=== PATIENT | male | born 1970 | race Caucasian/White ===

== ENCOUNTER 2017-11-21 13:09 | Emergency (ER) | payer MEDICARE, MEDICAID ==
[~2017-11-21] VITALS: Ht 182.9 cm; Wt 99.0 kg
[~2017-11-21 13:09] MED LIST: ATI1T PO; BUSP5TAB26 PO; DIPH-423 PO; DIVA500T2 PO; GUAI120015 PO; LORA10TA65 PO; NAPR-1144 PO; NEOM14.216 TP; NICO-687 TD; TRAZ150T78 PO; VENL-190 PO
[2017-11-21 13:13] VITALS: BP 121/78
[2017-11-21] MEDS ORDERED: CEPH500C5 PO (13:25)
[2017-11-21] MEDS ORDERED: IBUP-1984 PO (13:34)
== END 2017-11-21 13:38 | disposition home or self-care (01) ==
LOC: ER 13:11
DX: L72.3 Sebaceous cyst (principal); G43.909 Migraine, unspecified, not intractable, without status migrainosus; E78.00 Pure hypercholesterolemia, unspecified; G89.29 Other chronic pain; I10 Essential (primary) hypertension; K21.9 Gastro-esophageal reflux disease without esophagitis; E11.9 Type 2 diabetes mellitus without complications; F12.10 Cannabis abuse, uncomplicated; Z79.899 Other long term (current) drug therapy
CPT/HCPCS: 99283

== ENCOUNTER 2019-06-13 17:05 | Emergency (ER) | payer MEDICAID, MEDICARE ==
[~2019-06-13] VITALS: Ht 182.9 cm; Wt 72.7 kg
[2019-06-13] MEDS ORDERED: metoclopramide 5 mg/ml inj IV ONE (18:20)
[2019-06-13] MEDS ORDERED: normal saline 1000ML IV soln IVB ONE (18:20)
[2019-06-13] MEDS ORDERED: ketorolac trometh. 30mg/ml inj. IV ONE (18:20)
[2019-06-13] MEDS ORDERED: ondansetron/PF 4mg/2ml inj IV ONE (18:20)
[2019-06-13 18:50] LABS: BASOPHILS % (AUTO) 0.3 % (0-1); EOSINOPHILS # (AUTO) 0.2 X10'3 (0-0.9); EOSINOPHILS % (AUTO) 1.4 % (0-6); HEMATOCRIT 37.2 % (42.0-52.0); LYMPHOCYTES # (AUTO) 1.3 X10'3 (1.1-4.8); LYMPHOCYTES % (AUTO) 9.4 % (21-51); MEAN CORPUSCULAR HEMOGLOBIN 32.1 PG (27.0-31.0); MEAN CORPUSCULAR HGB CONC 34.9 g/dL (33.0-36.5); MEAN PLATELET VOLUME 6.2 FL (7.4-10.4); MONOCYTES # (AUTO) 0.7 X10'3 (0-0.9); MONOCYTES % (AUTO) 5.5 % (2-12); NEUTROPHILS # (AUTO) 11.5 X10'3 (1.8-7.7); NEUTROPHILS % (AUTO) 83.4 % (42-75); PLATELET COUNT 265 X10'3 (140-440); RED BLOOD COUNT 4.04 X10'6 (4.70-6.10); WHITE BLOOD COUNT 13.7 X10'3 (4.5-11.0)
[2019-06-13 19:01] LABS: ALANINE AMINOTRANSFERASE 27 U/L (12-78); ALBUMIN 3.2 G/DL (3.4-5.0); ALBUMIN/GLOBULIN RATIO 1.1 (1.1-1.5); ALKALINE PHOSPHATASE 69 IU/L (46-116); ANION GAP 6 (8-16); ASPARTATE AMINO TRANSFERASE 23 U/L (10-37); BILIRUBIN,TOTAL 0.2 MG/DL (0.1-1.0); BLOOD UREA NITROGEN 17 MG/DL (7-18); CALCIUM 8.4 MG/DL (8.5-10.1); CHLORIDE 106 MMOL/L (99-107); CREATININE 0.63 MG/DL (0.60-1.10); GLUCOSE 104 MG/DL (70-104); POTASSIUM 3.8 MMOL/L (3.5-5.1); SODIUM 140 MMOL/L (135-145); TOTAL CARBON DIOXIDE 27.8 MMOL/L (24-32); eGFR > 90 ML/MIN
[2019-06-13 19:08] LABS: ETHANOL < 0.010 GM/DL (0.0-0.010)
[2019-06-13 19:48] VITALS: BP 141/87
== END 2019-06-13 19:51 | disposition home or self-care (01) ==
LOC: ER 17:05
DX: G43.909 Migraine, unspecified, not intractable, without status migrainosus (principal); M79.671 Pain in right foot; M79.661 Pain in right lower leg; E78.00 Pure hypercholesterolemia, unspecified; I10 Essential (primary) hypertension; K21.9 Gastro-esophageal reflux disease without esophagitis; E11.9 Type 2 diabetes mellitus without complications; G89.29 Other chronic pain; F31.9 Bipolar disorder, unspecified; F41.0 Panic disorder [episodic paroxysmal anxiety]; F20.9 Schizophrenia, unspecified; Z86.69 Personal history of other diseases of the nervous system and sense organs; F12.90 Cannabis use, unspecified, uncomplicated; Z98.890 Other specified postprocedural states; Z88.8 Allergy status to other drugs, medicaments and biological substances; Z79.899 Other long term (current) drug therapy
CPT/HCPCS: 36415; 73552; 73630; 80053; 80320; 85025; 96374; 96375; 99284; J1885; J2405; J2765; J7030

== ENCOUNTER 2019-06-17 21:15 | Emergency (ER) | payer MEDICARE, MEDICAID ==
[~2019-06-17] VITALS: Ht 180.3 cm; Wt 75.0 kg
[2019-06-17] MEDS ORDERED: diphenhydrAMINE 25mg capsule PO ONE (22:35)
[2019-06-17] MEDS ORDERED: proCHLORperazine 10 MG/2 ml inj IM ONE (22:35)
[2019-06-17 23:36] VITALS: BP 106/75
== END 2019-06-17 23:30 | disposition home or self-care (01) ==
LOC: ER 21:15
DX: G43.909 Migraine, unspecified, not intractable, without status migrainosus (principal); R50.9 Fever, unspecified; E78.00 Pure hypercholesterolemia, unspecified; I10 Essential (primary) hypertension; K21.9 Gastro-esophageal reflux disease without esophagitis; E11.9 Type 2 diabetes mellitus without complications; G89.29 Other chronic pain; F31.9 Bipolar disorder, unspecified; F41.0 Panic disorder [episodic paroxysmal anxiety]; F20.9 Schizophrenia, unspecified; F12.90 Cannabis use, unspecified, uncomplicated; Z98.890 Other specified postprocedural states; Z88.6 Allergy status to analgesic agent; Z79.899 Other long term (current) drug therapy; Z87.19 Personal history of other diseases of the digestive system
CPT/HCPCS: 96372; 96374; 99284

== ENCOUNTER 2019-06-23 19:13 | Emergency (ER) | payer MEDICARE, MEDICAID ==
[~2019-06-23] VITALS: Ht 182.9 cm; Wt 59.7 kg
[2019-06-23 20:09] LABS: CLARITY,URINE CLEAR (Clear); COLOR,URINE YELLOW (Yellow); GLUCOSE, URINE NEGATIVE (Neg); KETONES,URINE NEGATIVE (Neg); LEUKOCYTE ESTERASE ,URINE NEGATIVE (Neg); NITRITES, URINE NEGATIVE (Neg); OCCULT BLOOD,URINE NEGATIVE (Neg); PH,URINE 5.5 (4.8-8.0); PROTEIN,URINE NEGATIVE (Neg); UROBILINOGEN,URINE 0.2 E.U/dL (0.2-1.0)
[2019-06-23 20:16] LABS: UA COLLECTION TYPE CLN CATCH MIDSTREAM
[2019-06-23 20:18] LABS: URINE AMPHETAMINE SCREEN NEGATIVE (Neg); URINE BARBITUATE SCREEN NEGATIVE (Neg); URINE BENZODIAZEPINES SCREEN NEGATIVE (Neg); URINE CANNABINOID SCREEN POSITIVE (Neg); URINE COCAINE SCREEN NEGATIVE (Neg); URINE METHADONE SCREEN NEGATIVE (Neg); URINE OPIATE SCREEN NEGATIVE (Neg); URINE PHENCYCLIDINE SCREEN NEGATIVE (Neg)
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
[2019-06-23 20:50] LABS: BASOPHILS % (AUTO) 0.3 % (0-1); EOSINOPHILS # (AUTO) 0.2 X10'3 (0-0.9); EOSINOPHILS % (AUTO) 2.8 % (0-6); HEMATOCRIT 37.4 % (42.0-52.0); LYMPHOCYTES # (AUTO) 1.2 X10'3 (1.1-4.8); MEAN CORPUSCULAR HEMOGLOBIN 32.1 PG (27.0-31.0); MEAN CORPUSCULAR HGB CONC 34.6 g/dL (33.0-36.5); MEAN CORPUSCULAR VOLUME 92.7 FL (78-98); MONOCYTES # (AUTO) 0.7 X10'3 (0-0.9); MONOCYTES % (AUTO) 8.3 % (2-12); NEUTROPHILS # (AUTO) 6.6 X10'3 (1.8-7.7); NEUTROPHILS % (AUTO) 74.6 % (42-75); PLATELET COUNT 314 X10'3 (140-440); RED BLOOD COUNT 4.04 X10'6 (4.70-6.10); RED CELL DISTRIBUTION WIDTH 13.5 % (11.5-14.5); WHITE BLOOD COUNT 8.8 X10'3 (4.5-11.0)
[2019-06-23 21:02] LABS: ALANINE AMINOTRANSFERASE 22 U/L (12-78); ALBUMIN 2.9 G/DL (3.4-5.0); ALBUMIN/GLOBULIN RATIO 0.9 (1.1-1.5); ALKALINE PHOSPHATASE 67 IU/L (46-116); ANION GAP 6 (8-16); ASPARTATE AMINO TRANSFERASE 19 U/L (10-37); BILIRUBIN,TOTAL 0.1 MG/DL (0.1-1.0); BLOOD UREA NITROGEN 27 MG/DL (7-18); BUN/CREATININE RATIO 44.3 (5.4-32.0); CALCIUM 8.5 MG/DL (8.5-10.1); CHLORIDE 105 MMOL/L (99-107); CREATININE 0.61 MG/DL (0.60-1.10); GLUCOSE 149 MG/DL (70-104); POTASSIUM 3.5 MMOL/L (3.5-5.1); SODIUM 139 MMOL/L (135-145); TOTAL CARBON DIOXIDE 27.8 MMOL/L (24-32); eGFR > 90 ML/MIN
[2019-06-23 21:11] LABS: ETHANOL < 0.010 GM/DL (0.0-0.010)
--- NOTE | 2019-06-23 21:30 | NUR ---
Patient is sleeping on his left side in bed, in view from the nursing station.
--- NOTE | 2019-06-23 22:39 | NUR ---
Patient is awake and ambulating to the bathroom and back.
--- NOTE | 2019-06-23 23:21 | NUR ---
Packet sent to [facility]. Confirmed receipt of packet with Anitha VILLA office.
--- NOTE | 2019-06-23 23:57 | NUR ---
Patient now sleeping in bed on his left side.
--- NOTE | 2019-06-24 01:35 | NUR ---
Pt sleeping, lying on his left side with blankets covering to his shoulders. RR 14 and unlabored. Staff within view of Pt AAT.
[2019-06-24 05:30] VITALS: BP 115/65
[2019-06-24] MEDS ORDERED: acetaminophen 325mg tablet PO PRN (06:15)
[2019-06-24] MEDS ORDERED: ibuprofen tablet 400 MG TABLET PO PRN (06:15)
--- NOTE | 2019-06-24 07:02 | NUR ---
PT CURRENTLY LAYING IN BED FIDGETING FEET, TALKING TO HIMSELF. AT TIMES, HIS TONE BECOMES ANGRY AND HE CURSES. PT IN DIRECT LINE OF SIGHT.
[2019-06-24] MEDS ORDERED: LORazepam 1 MG tablet PO ONE ×2 (07:10→15:25)
--- NOTE | 2019-06-24 07:20 | NUR ---
Pt becoming increasingly agitated as noted by tech. Change in tone of voice while talking to himself, appears irritated and slightly angry, becoming more restless and getting in and out of bed. MD notified. One time dose of ativan 2mg PO ordered and administered.
--- NOTE | 2019-06-24 13:39 | NUR ---
Call from [place] office, patient accepted to [facility] today
[2019-06-24] MEDS ORDERED: nicotine 21mg patch - 24 hr TD ONE (15:25)
[2019-06-24] MEDS ORDERED: LORazepam 2 mg/ml vial IM ONE (15:35)
--- NOTE | 2019-06-24 15:47 | NUR ---
Pt informed that he has been accepted to [facility] and asked to get his belongings including his hot wort settler and cigars. Pt wanted to go outside and smoke - informed pt as to why this is not allowed. Pt became angry and threatened to leave. Explained to pt the protocol as to why he cannot leave for his safety. Security called to bedside. notified. Nicotine patch and PO ativan ordered - pt began to yell, get out of bed, become increasingly agitated and repeatedly yelled "I want to be " and "I want to be buried undergroud." Told pt he can take the PO ativan or it has to be delivered via IM, pt stated he would rather have the shot. Security held down pt as RN administered IM ativan.
[2019-06-25] MEDS ORDERED: NO HOME MEDS (13:08)
== END 2019-06-24 16:38 | disposition home or self-care (01) ==
LOC: ER 19:14
DX: R45.851 Suicidal ideations (principal); G43.909 Migraine, unspecified, not intractable, without status migrainosus; E78.00 Pure hypercholesterolemia, unspecified; I10 Essential (primary) hypertension; K21.9 Gastro-esophageal reflux disease without esophagitis; E11.9 Type 2 diabetes mellitus without complications; G89.29 Other chronic pain; F31.9 Bipolar disorder, unspecified; F20.9 Schizophrenia, unspecified; F12.90 Cannabis use, unspecified, uncomplicated; F10.99 Alcohol use, unspecified with unspecified alcohol-induced disorder; Z86.69 Personal history of other diseases of the nervous system and sense organs; Z98.890 Other specified postprocedural states; Z88.8 Allergy status to other drugs, medicaments and biological substances; Z79.899 Other long term (current) drug therapy; Y90.9 Presence of alcohol in blood, level not specified
CPT/HCPCS: 36415; 80053; 80305; 80320; 81003; 84443; 85025; 96372; 99285; J2060

== ENCOUNTER 2019-06-24 14:12 | Inpatient (IN) | payer MEDICARE, MEDICAID ==
[~2019-06-24] VITALS: Ht 182.9 cm; Wt 78.1 kg
--- NOTE | 2019-06-24 17:00 | NUR ---
ADMISSION NOTE: Pt admitted on a 5150 from ER-overflow at 1642. Pt escorted with security and two RN skin check completed by Yovany Love and Alexandra Hall. Pt cursing and negative r/t admission and not being able to smoke a cigar. 5150 states pt was depressed and hopeless with a plan to jump off a bridge. Pt was a walk-in to the ER by himself. Pt states he has had s.i. x 3 days and has not taken medication x 2 years. Pt was negative for all drugs of abuse except cannabinoids. Alcohol was negative.
[2019-06-24] MEDS ORDERED: loperamide 2mg capsule PO PRN (17:05)
[2019-06-24] MEDS ORDERED: magnesium hydroxide 30ml (MOM) UD suspension PO PRN (17:05)
[2019-06-24] MEDS ORDERED: mag hydrox/Alum hydrox/simeth 30ml oral suspension PO PRN (17:05)
[2019-06-24] MEDS ORDERED: acetaminophen 325mg tablet PO PRN (17:05)
[2019-06-24 20:03] VITALS: BP 98/57
--- NOTE | 2019-06-25 01:04 | NUR ---
Nursing Progress Note: Legal hold: 5150 Client on voluntary/involuntary status for GD/DTS. Report received from nurse with use of SBAR. Why are they here: 49-year-old male with a history of depression since with suicidal ideation 3 days. Patient states he does not take any medicines for depression for the last 2 years. He states he was going to overdose or jump in front of car in order to end his life. Last used meth one week ago. Also occasionally uses marijuana. Denies any alcohol use. He does smoke cigarettes as well. Assessment What has happened this shift: The patient was found in his bed at shift change. Upon entering his room his eyes opened. He was told that I was there to do assessment. The patient refused saying he's too tired and needs to sleep. The patient remains asleep at this time. S/I, H/I: unknown A/VH: unknown Sleep: See sleep hours ADL's: Independent Group attendance: No groups at night Were meds taken: Yes Any med S/E: None reported or observed Mental Status Exam Appearance: Disheveled man laying in bed. Eye contact: Avoided Behavior: Sleeping Speech: Normal Mood: unknown Affect:unknown Thought process: unknown Thought Content:unknown Cognition: Alert Insight: Poor Judgment: Poor Interventions PRN's used: Therapeutic interventions: Provided therapeutic communication with active listening, maintained safe therapeutic milieu, provided medication administration/education/monitoring as needed; Q15 safety checks. Restraints/seclusion/emergency medication: N/A Justification of Continued Inpatient Treatment: Continued therapeutic support and medication management needed to provide stabilization, prevent decompensation, and improve coping mechanisms decreasing risk to patient and re-admittance.
[2019-06-25] MEDS: nicotine 21mg patch - 24 hr TD SCH (07:23)
[2019-06-25] MEDS: hydrOXYzine 25 MG tablet PO PRN (07:49)
[2019-06-25] MEDS ORDERED: diphenhydrAMINE 50 mg/ml inj ONE (09:42)
[2019-06-25] MEDS ORDERED: haloperidol lactate 5mg/ml inj ONE (09:42)
[2019-06-25] MEDS ORDERED: LORazepam 2 mg/ml vial ONE (09:43)
[2019-06-25] MEDS ORDERED: NO HOME MEDS (13:08)
--- NOTE | 2019-06-25 13:47 | NUR ---
Malnutrition consult. Patient reports on malnutrition risk screening a 34 or more lb weight loss and eating poorly d/t decreased appetite. Current weight 74.2 kg on bedscale, in May patient weighed 72.73 kg on chair scale. No other recent weights available. No edema present. Normal muscle strength. Current PO intake 100% of regular diet. No malnutrition at this time. Will continue to follow. Addendum: 06/25/19 at [address] Amended: Links added.
--- NOTE | 2019-06-25 14:50 | NUR ---
Nursing Progress Note: Legal hold: 5150 Client on involuntary status for GD/DTS. Report received from nurse Florian with use of SBAR. Why are they here: 49-year-old male with a history of depression since with suicidal ideation 3 days. Patient states he does not take any medicines for depression for the last 2 years. He states he was going to overdose or jump in front of car in order to end his life. Last used meth one week ago. Also occasionally uses marijuana. Denies any alcohol use. He does smoke cigarettes as well. Assessment What has happened this shift: Pt presented as restless and agitated early this morning before breakfast. He was demanding his cigars, demanding that the charge nurse show him his cigars to prove they were still in his belongings. Order obtained for Nicotine patch which pt adamantly refused, also refused lozenges. Pt paranoid, he accused staff of stealing his belongings, stated we had no right to keep him here. Mental health hold education provided with little comprehension by pt. Pt was in possession of a jacket with pull strings in moreno and at waist as well as drawstring shorts. Explained to pt that they were not allowed on the unit for safety and that we would take them and place them in his locker until he was discharged. Pt angry, unwilling to allow staff to take the jacket and the shorts. Security was called for back up and pt reluctantly allowed staff to take the jacket. He would not give up the shorts and agreed to allow the drawstrings to be cut off of them. Pt declined any prn medications stating that he would just lie there in the bed for 3 days. Shortly thereafter, pt began quickly pacing around the unit mumbling profanities about staff, "I hate that fucking bitch." Pt delusional, he stated, "I hate the people here, I hate his daughter Carolina Purvis." Attempted reality orientation that there was no one here by that name. Pt pointed his finger at the biometrics technician and indicated that she was Carolina. Pt repeatedly stated over and over again, "I don't trust you people." Pt was resistant to taking prn medications,offered prn Atarax several times, pt finally agreed to take it at 0749 after seeing a male nurse in the lam, stated, "I trust you." Pt calmed some after breakfast and allowed physical and mental health assessments. Pt denied all symptoms. Reminded pt that he was here because he had been making suicidal statements. Pt stated that he no longer felt that way, "I'm over that, can I leave please?" After breakfast pt again began demanding his cigars and demanding to leave, pt rapidly pacing again using profanities, making statements like, " I hate people here, especially that fat, fucking whore at the window....nigger Mormons, nigger Mormons, nigger Mormons, I hate Mormons!" Pt offered prn Ativan, he adamantly refused stating he wasn't going to take our medicine, that he was going to leave, he would just smash the window to get out of here. Limit setting, redirection, and verbal de-escalation ineffective. Security was called as a show of support. Pt again refused prn meds despite encouragement. Limit setting utilized that profane language directed towards staff members and threats to smash the windows out would not be tolerated, explained possible consequences of continued unsafe behaviors. Pt stated, just give me a shot. Encouraged pt to reconsider PO mediation. Pt declined and continued with agitation, profanities, threats, and unwillingness to follow direction. Psychiatrist Dr Yepez notified and one time dose of IM Haldol 5 mg, Ativan 2 mg, and Benadryl 50 mg given at 0950. Pt cooperative with administration of IM meds. Pt was calm, pleasant, and cooperative after administration of IM meds, marked reduction in anxiety and agitation as well as presentation of psychotic symptoms. Pt ate some snacks and took a very short nap then was up calmly walking around the unit. Pt stated that he has been off of his meds for 2 years. S/I, H/I: Pt denies A/VH: Pt denies Sleep: Pt slept 5.75 hours per noc shift report, napped for less than 30 minutes on day shift today. ADL's: Independent Group attendance: No Were meds taken: No routine meds ordered as of yet, given a one time dose of IM medication. Any med S/E: None noted or reported Mental Status Exam Appearance: Disheveled man in scrub pant with orange shorts over them and olive green sweatshirt. Eye contact: Fair Behavior: Agitated, demanding, loud verbal outbursts and profanity, resistant to care and medications Speech: Pressured, many profanities Mood: Angry Affect: Agitated Thought process: Paranoid, delusional Thought Content: Wants his cigars, wants to leave, believes staff members are other people he knows, dislikes, and mistrusts. Cognition: A/O X 2 Insight: Poor Judgment: Poor Interventions PRN's used: Atarax 50 mg Therapeutic interventions: 1:1 assessment, active listening, reality orientation, limit setting, redirection, distraction, verbal de-escalation, show of support,monitoring and intervention of unsafe behaviors, encouragement to take medications, positive reinforcement, mental health hold education, Q15 safety checks. Restraints/seclusion/emergency medication: IM Haldol 5 mg, Ativan 2 mg, Benadryl 50 mg @ 0749. Justification of Continued Inpatient Treatment: Pt is psychotic, paranoid, and delusional, he is homeless with a history of substance abuse, he states he has been off his meds for 2 years. He needs crisis interruption, therapeutic support and medication management adjustment and monitoring in a safe and therapeutic environment to provide stabilization, prevent decompensation, and improve coping mechanisms decreasing risk to patient and re-admittance.
[2019-06-25] MEDS ORDERED: haloperidol 5mg tablet PO ONE (19:20)
[2019-06-25] MEDS ORDERED: diphenhydrAMINE 25mg capsule PO ONE (19:20)
[2019-06-25] MEDS ORDERED: LORazepam 1 MG tablet PO ONE (19:20)
[2019-06-25 20:06] VITALS: BP 90/50
--- NOTE | 2019-06-26 02:21 | NUR ---
Nursing Progress Note: Legal hold: 5150 Client on involuntary status for GD/DTS. Report received from nurse Ruano with use of SBAR. Why are they here: 49-year-old male with a history of depression since with suicidal ideation 3 days. Patient states he does not take any medicines for depression for the last 2 years. He states he was going to overdose or jump in front of car in order to end his life. Last used meth one week ago. Also occasionally uses marijuana. Denies any alcohol use. He does smoke cigarettes as well. Assessment What has happened this shift: Pt was sleeping in his bed at change of shift and remained in bed for duration of the shift, except to get out of bed to request snacks. Pt was somewhat agitated during assessment and states "I dont want to talk about it." in regards to why he is here. Pt denies s/i, denies a/vh, denies h/i. Pt is polite when asking for snacks but once recieving them tells ppl to get out of his room. Pt smeared chocolate milk powder over his night stand and spilled it all over the floor. Attempted to clean up spill and pt yelled "dammit I'm trying to get some sleep can you get the hell out of here? and shut off the light?" Pt was sitting on the side of his bed eating when he requested to have the light shut off. Pt was later laying in bed rambling and cussing talking to himself. Asked pt if he would like anything to help sleep and he states "I want to know when I can get the hell out of here, can you get me a cigar and some matches?" Offered nicotine patch or lozenge and pt states "If you dont get me a cigar I'm going to break this window out if I have to get out of here." Pt remained in bed mumbling and talking to himself quietly. S/I, H/I: Pt denies A/VH: Pt denies Sleep: Pt laying in bed quietly mumbling and cursing to himself. Prn offered and pt declined. ADL's: Independent Group attendance: No Were meds taken: No routine meds ordered. Any med S/E: None noted or reported Mental Status Exam Appearance: Disheveled man in scrub pant with orange shorts over them and olive green sweatshirt. Eye contact: Fair Behavior: Agitated, demanding, loud verbal outbursts and profanity, resistant to care and medications Speech: Pressured, many profanities Mood: Angry Affect: Agitated Thought process: Paranoid, delusional Thought Content: Wants his cigars, wants to leave, believes staff members are other people he knows, dislikes, and mistrusts. Cognition: A/O X 2 Insight: Poor Judgment: Poor Interventions PRN's used: Therapeutic interventions: 1:1 assessment, active listening, reality orientation, limit setting, redirection, distraction, verbal de-escalation, show of support,monitoring and intervention of unsafe behaviors, encouragement to take medications, positive reinforcement, mental health hold education, Q15 safety checks. Restraints/seclusion/emergency medication: IM Haldol 5 mg, Ativan 2 mg, Benadryl 50 mg @ 0749. Justification of Continued Inpatient Treatment: Pt is psychotic, paranoid, and delusional, he is homeless with a history of substance abuse, he states he has been off his meds for 2 years. He needs crisis interruption, therapeutic support and medication management adjustment and monitoring in a safe and therapeutic environment to provide stabilization, prevent decompensation, and improve coping mechanisms decreasing risk to patient and re-admittance. Addendum: 06/26/19 at 0324 by Cathleen Lama RN No restrains this shift
[2019-06-26 07:14] LABS: HEMOGLOBIN A1C 5.4 % (4.5-6.2)
[2019-06-26 07:29] LABS: CHOL/HDL RATIO 3.6 (0.00-4.99); CHOLESTEROL 147 MG/DL (0-200); HDL CHOLESTEROL 41 MG/DL (35-60); LDL CHOLESTEROL 97 MG/DL (50-100); TRIGLYCERIDES 68 MG/DL (20-135)
[2019-06-26] MEDS: nicotine 21mg patch - 24 hr TD SCH (07:47)
[2019-06-26 08:00] VITALS: BP 107/74
--- NOTE | 2019-06-26 12:55 | NUR ---
Attempted to meet with Ct to complete psychosocial assessment. He was paranoid and did not want to answer many questions. Rehabilitation Therapist is familiar with Ct and was able to complete assessment based on history. Ct reported he plans on going to the [place]. He reported he has a payee and can stay at a hotel if he wishes. Spoke to [facility] office and was informed that Ct was closed to services at [facility] 11/2018 when Ct moved to [place] and he declined to start services in [facility]. DEEP Bowie Addendum: 06/26/19 at 1300 by Pia CARL Amended: Links added.
[2019-06-26] MEDS ORDERED: ARIPIPRAZOLE 400 MG IM ONE (13:05)
[2019-06-26] MEDS ORDERED: aripiprazole 400mg suspension ER syringe IM ONE (13:05)
--- NOTE | 2019-06-26 13:39 | NUR ---
Nursing Progress Note: Legal hold: 5150 Client on involuntary status for GD/DTS. Report received from nurse Jerry with use of SBAR. Why are they here: 49-year-old male with a history of depression since with suicidal ideation 3 days. Patient states he does not take any medicines for depression for the last 2 years. He states he was going to overdose or jump in front of car in order to end his life. Last used meth one week ago. Also occasionally uses marijuana. Denies any alcohol use. He does smoke cigarettes as well. Assessment What has happened this shift: Client was awake and agitated to begin the shift. Client was oppositional this am and has issued several verbal threats towards this senior mortgage underwriter. Client wants to leave and, "go smoke my cigars". Client refuses PRN medication interventions and loudly dimisses attempts to assist him to cope with the agaitation. DIANNA Solomon is aware and emergency medications have been identified if the need arises. Client stated, " I don't care about you fucking people and I will start to hurt all of you. "Let me the fuck out of here now". Client is currently in his room talking loudly to himself. (1348 hours). S/I, H/I: Pt denies A/VH: Pt denies Sleep: Pt laying in bed quietly mumbling and cursing to himself. Prn offered and pt declined. ADL's: Independent Group attendance: No Were meds taken: refused Nicotine replacement. Any med S/E: None noted or reported Mental Status Exam Appearance: Disheveled man in scrub pant with orange shorts over them and olive green sweatshirt. Eye contact: Fair Behavior: Agitated, demanding, loud verbal outbursts and profanity, resistant to care and medications Speech: Pressured, many profanities Mood: Angry Affect: Agitated Thought process: Paranoid, delusional Thought Content: Wants his cigars, wants to leave, believes staff members are other people he knows, dislikes, and mistrusts. Cognition: A/O X 2 Insight: Poor Judgment: Poor Interventions PRN's used: Therapeutic interventions: 1:1 assessment, active listening, reality orientation, limit setting, redirection, distraction, verbal de-escalation, show of support,monitoring and intervention of unsafe behaviors, encouragement to take medications, positive reinforcement, mental health hold education, Q15 safety checks. Justification of Continued Inpatient Treatment: Pt is psychotic, paranoid, and delusional, he is homeless with a history of substance abuse, he states he has been off his med for a while now. Addendum: 06/26/19 at 1457 by Hank Means RN Client showered this afternoon and his behaviors have been much more appropriate this afternoon. Client is not issuing threats and is communicating his needs to treatment Staff.
[2019-06-26] MEDS: divalproex sod 250mg ER (24-hour) tablet PO SCH (20:17)
[2019-06-26 20:31] VITALS: BP 116/74
--- NOTE | 2019-06-26 21:35 | NUR ---
Nursing Progress Note: Legal hold: 5150 Client on involuntary status for GD/DTS. Report received from nurse Ruano with use of SBAR. Why are they here: 49-year-old male with a history of depression since with suicidal ideation 3 days. Patient states he does not take any medicines for depression for the last 2 years. He states he was going to overdose or jump in front of car in order to end his life. Last used meth one week ago. Also occasionally uses marijuana. Denies any alcohol use. He does smoke cigarettes as well. Assessment What has happened this shift: Client was in his room at change of shift. Pt refused assessment saying "get the hell out of here, unless you're gonna get me a cigar, I dont want anything from you!...Are you gonna let me go?? Pt was agitated then a couple hours later he came to nurses station and smiling, he politely asked for his evening meds and saltine crackers. Pt took evening meds and returned to bed. S/I, H/I: Pt denies A/VH: Pt denies Sleep: Pt appears to be resting comfortably ADL's: Independent Group attendance: No Were meds taken: yes Any med S/E: None noted or reported Mental Status Exam Appearance: wearing white t shirt and scrubs Eye contact: Fair Behavior: Agitated, demanding, loud verbal outbursts and profanity, resistant to care, labile Speech: Pressured, many profanities Mood: Angry, Affect: Agitated, labile Thought process: Paranoid, delusional Thought Content: Wants his cigars, wants to leave, believes staff members are other people he knows, dislikes, and mistrusts. Cognition: A/O X 2 Insight: Poor Judgment: Poor Interventions PRN's used: Therapeutic interventions: 1:1 assessment, active listening, reality orientation, limit setting, redirection, distraction, verbal de-escalation, show of support,monitoring and intervention of unsafe behaviors, encouragement to take medications, positive reinforcement, mental health hold education, Q15 safety checks. Justification of Continued Inpatient Treatment: Pt is psychotic, paranoid, and delusional, he is homeless with a history of substance abuse, he states he has been off his med for a while now.
[2019-06-27 08:00] VITALS: BP 103/68
[2019-06-27] MEDS: nicotine 21mg patch - 24 hr TD SCH (08:00)
[2019-06-27] MEDS ORDERED: ARIPIPRAZOLE 10 MG TABLET PO SCH (08:00)
[2019-06-27] MEDS: divalproex sod 250mg ER (24-hour) tablet PO SCH ×2 (08:03→20:02)
[2019-06-27] MEDS: acetaminophen 325mg tablet PO PRN ×2 (11:31→12:42)
--- NOTE | 2019-06-27 14:43 | NUR ---
[facility] Ct currently has [facility]-alison. Assisted him with calling [facility] to switch Medi-alison to [facility] as he plans on staying in [place] and would like to follow up with [facility]. They did not have record of his Medi-alison. Attempted to assist him with calling [facility] to switch it and Ct hung up and said he would rather just walk in to switch it. Ct appeared to be frustrated and stated he wants to leave and would like to see his doctor to discuss discharge. DEEP Bowie
[2019-06-27] MEDS: ARIPIPRAZOLE 10 MG TABLET PO SCH ×2 (16:40→20:02)
[2019-06-27] MEDS: LORazepam 1 MG tablet PO PRN (17:21)
--- NOTE | 2019-06-27 18:30 | NUR ---
Nursing Progress Note: Legal hold: 5150 Client on involuntary status for GD/DTS. Report received from nurse Jerry with use of SBAR. Why are they here: 49-year-old male with a history of depression since with suicidal ideation 3 days. Patient states he does not take any medicines for depression for the last 2 years. He states he was going to overdose or jump in front of car in order to end his life. Last used meth one week ago. Also occasionally uses marijuana. Denies any alcohol use. He does smoke cigarettes as well. Assessment What has happened this shift: Received pt awake at beginning of shift in hallway. Pt pleasant during first half of this shift and then became agitated at not being able to leave and possible meth withdrawals. Able to calm by self and took oral Ativan. Pt is labile and delusional in thought and speech. Speaks rapidly and pressured and defiant at times. S/I, H/I: Pt denies A/VH: Pt denies Sleep: 4.75 hrs last night ADL's: Independent Group attendance: No Were meds taken: refused Nicotine replacement. Any med S/E: None noted or reported Mental Status Exam Appearance: Disheveled man in scrub pant with orange shorts over them and olive green sweatshirt. Eye contact: Fair Behavior: Agitated, demanding, loud verbal outbursts and profanity, resistant to care and medications Speech: Pressured, many profanities Mood: Angry Affect: Agitated Thought process: Paranoid, delusional Thought Content: Wants his cigars, wants to leave, believes staff members are other people he knows, dislikes, and mistrusts. Cognition: A/O X 2 Insight: Poor Judgment: Poor Interventions PRN's used: Ativan 1mg Therapeutic interventions: 1:1 assessment, active listening, reality orientation, limit setting, redirection, distraction, verbal de-escalation, show of support, monitoring and intervention of unsafe behaviors, encouragement to take medications, positive reinforcement, mental health hold education, Q15 safety checks. Justification of Continued Inpatient Treatment: Pt is psychotic, paranoid, and delusional, he is homeless with a history of substance abuse, he states he has been off his med for a while now.
[2019-06-27 20:18] VITALS: BP 113/70
--- NOTE | 2019-06-27 20:34 | NUR ---
Nursing Progress Note: Legal hold: 5150 Client on involuntary status for GD/DTS. Report received from nurse Jerry with use of SBAR. Why are they here: 49-year-old male with a history of depression since with suicidal ideation 3 days. Patient states he does not take any medicines for depression for the last 2 years. He states he was going to overdose or jump in front of car in order to end his life. Last used meth one week ago. Also occasionally uses marijuana. Denies any alcohol use. He does smoke cigarettes as well. Assessment What has happened this shift: Pt was laying in bed resting at change of shift. Pt denies s/i, denies a/vh. Pt was med compliant this evening and reported feeling hungry and tired. Pt was given a snack w/evening meds he then spent time watching tv in the group room. Pt was pleasant during interactions and went to bed. S/I, H/I: Pt denies A/VH: Pt denies Sleep: pt is sleeping well ADL's: Independent Group attendance: No Were meds taken: yes Any med S/E: feeling sleeping Mental Status Exam Appearance: Pt is adequately groomed and dressed wearing jeans and a tshirt. Eye contact: Fair Behavior: calm cooperative, quiet, watching tv in the group room and resting Speech: soft spoken, Mood: calm Affect: constricted Thought process: Paranoid, delusional Thought Content: Wants his cigars, wants to leave, Cognition: A/O X 2 Insight: Poor Judgment: Poor Interventions PRN's used: Therapeutic interventions: 1:1 assessment, active listening, reality orientation, limit setting, redirection, distraction, verbal de-escalation, show of support, monitoring and intervention of unsafe behaviors, encouragement to take medications, positive reinforcement, mental health hold education, Q15 safety checks. Justification of Continued Inpatient Treatment: Pt is psychotic, paranoid, and delusional, he is homeless with a history of substance abuse, he states he has been off his med for a while now.
[2019-06-28] MEDS: nicotine 21mg patch - 24 hr TD SCH (07:45)
[2019-06-28] MEDS: ARIPIPRAZOLE 10 MG TABLET PO SCH ×2 (07:45→20:25)
[2019-06-28] MEDS: divalproex sod 250mg ER (24-hour) tablet PO SCH ×2 (08:08→20:26)
[2019-06-28 08:22] VITALS: BP 119/71
--- NOTE | 2019-06-28 11:49 | NUR ---
HOUSING Ct signed consent for music writer to call Gallo with [facility] (ph# [phone]) to inquire about housing. Left message requesting a call back. DEEP Bowie
[2019-06-28] MEDS: acetaminophen 325mg tablet PO PRN (15:58)
--- NOTE | 2019-06-28 16:55 | NUR ---
Nursing Progress Note: [facility] Legal hold: 5150 Client on involuntary status for GD/DTS. Report received from nurse Jerry with use of SBAR. Why are they here: 49-year-old male with a history of depression since with suicidal ideation 3 days. Patient states he does not take any medicines for depression for the last 2 years. He states he was going to overdose or jump in front of car in order to end his life. Last used meth one week ago. Also occasionally uses marijuana. Denies any alcohol use. He does smoke cigarettes as well. Assessment What has happened this shift: Client was awake and ambulating on the unit when care was assumed at 0630 hours today. Client was amicable to assessment and medications and was very cordial with this typewriter tester. He appears to be much less hostile and aggressive today. Client also appears to be focused less on smoking cigars and more focused on discharge. Client performed ADL's without prompts and requested another shower prior to his hearing today at 1530 hours. Client had a Hearing this afternoon and will remain in care of this service for an additional period of time. S/I, H/I: Pt denies A/VH: Pt denies Sleep: 7.5 ADL's: Independent and does not require prompts. Group attendance: yes Were meds taken: yes Any med S/E: Mental Status Exam Appearance: Pt is adequately groomed and dressed wearing jeans and a tshirt. Eye contact: Fair Behavior: calm cooperative, quiet, watching tv in the group room and resting Speech: soft spoken, Mood: calm Affect: constricted Thought process: Paranoid, delusional Thought Content: Focused more on discharge and less preoccupied with smoking. Cognition: A/O X 2 Insight: Poor Judgment: Poor Interventions: PRN's used: Tylenol Therapeutic interventions: 1:1 assessment, active listening, reality orientation, limit setting, redirection, distraction, verbal de-escalation, show of support, monitoring and intervention of unsafe behaviors, encouragement to take medications, positive reinforcement, mental health hold education, Q15 safety checks. Justification of Continued Inpatient Treatment: Pt is psychotic, paranoid, and delusional, he is homeless with a history of substance abuse, he states he has been off his med for a while now.
[2019-06-28 19:47] VITALS: BP 118/76
--- NOTE | 2019-06-29 00:19 | NUR ---
Nursing Progress Note: Legal hold: 5250 Exp 07/11 @ 1640 Client on involuntary status for GD/DTS. Report received from PRERNA Moffett with use of SBAR. Why are they here: 49-year-old male with a history of depression since with suicidal ideation 3 days. Patient states he does not take any medicines for depression for the last 2 years. He states he was going to overdose or jump in front of car in order to end his life. Last used meth one week ago. Also occasionally uses marijuana. Denies any alcohol use. He does smoke cigarettes as well. Assessment What has happened this shift: Patient was seen in the lam at shift change. When this underwriter solicitation director went to introduce self and establish rapport, pt was already in bed. Was able to talk with patient during HS medication administration. Pt wasnt forthright in conversation I am tried and can talk tomorrow. Pt does deny SI, A/VH, ya I am good, ya no more thoughts like that. Pt was compliant with 1:1 assessment, but didnt want his left foot assessed. Pt came in with sores on his feet. Pt states he took off his Nicotine patch earlier in the day and discarded it, but didnt remember which receptacle. Pt sleeping comfortably as of this writing. S/I, H/I: None reported or observed. A/VH: None reported or observed. Sleep: Refer to Sleep Assessment. ADL's: Independent Group attendance: security shift manager, no groups. Were meds taken: Medication compliant. Any med S/E: None reported or observed. Mental Status Exam Appearance: Pt is adequately groomed and dressed wearing jeans and a t-shirt. Eye contact: Fair Behavior: Cooperative, sleepy Speech: Clear, minimal Mood: I am good Affect: Constricted Thought process: Paranoid, delusional Thought Content: Pt wanted to go back to bed. Cognition: A/O X 3 Insight: Poor Judgment: Poor Interventions: PRN's used: None Therapeutic interventions: 1:1 assessment, active listening, reality orientation, limit setting, redirection, distraction, verbal de-escalation, show of support, monitoring and intervention of unsafe behaviors, encouragement to take medications, positive reinforcement, mental health hold education, Q15 safety checks. Justification of Continued Inpatient Treatment: Patient needs further medication adjustment to reach therapeutic levels and stabilize current crisis. Pt is a high risk for readmission if d/c at this time. Pt continues to be paranoid and delusional. Addendum: 06/29/19 at 020 by Rosemarie Mclean RN Pt woke with headache 03/03. Tylenol administered. Addendum: 06/29/19 at 040 by Rosemarie Mclean RN Pt woke up feeling anxious 11/01, unable to go back to sleep. Administered PRN Atarax 50mg.
[2019-06-29] MEDS: acetaminophen 325mg tablet PO PRN ×2 (02:02→18:58)
[2019-06-29] MEDS: hydrOXYzine 25 MG tablet PO PRN (04:01)
[2019-06-29] MEDS: ARIPIPRAZOLE 10 MG TABLET PO SCH ×2 (07:22→20:17)
[2019-06-29] MEDS: nicotine 21mg patch - 24 hr TD SCH (07:24)
[2019-06-29 08:00] VITALS: BP 114/78
[2019-06-29] MEDS: divalproex sod 250mg ER (24-hour) tablet PO SCH ×2 (08:13→20:17)
--- NOTE | 2019-06-29 10:35 | NUR ---
HOUSING Ct reported he called Gallo with [facility] and Gallo told him they cannot help him any more. DEEP Bowie
--- NOTE | 2019-06-29 11:09 | NUR ---
Initial: PO intake avg 100% on regular diet, meeting nutrient needs. LBM 06/26, receiving MoM PRN. No nutrition diagnosis at this time. Will continue to monitor. Recommendation: 1. continue regular diet 2. bowel care as needed 3. weight per rx Addendum: 06/29/19 at 1109 by Wing [place] MENDEZ Amended: Links added. Addendum: 06/29/19 at [address] VANESSA Approdanika
--- NOTE | 2019-06-29 17:45 | NUR ---
Nursing Progress Note: Legal hold: 5250 Exp 07/11 @ 1640 Client on involuntary status for GD/DTS. Report received from PRERNA Aguayo with use of SBAR. Why are they here: 49-year-old male with a history of depression since with suicidal ideation 3 days. Patient states he does not take any medicines for depression for the last 2 years. He states he was going to overdose or jump in front of car in order to end his life. Last used meth one week ago. Also occasionally uses marijuana. Denies any alcohol use. He does smoke cigarettes as well. Assessment What has happened this shift: Pt. asleep at start of shift. Pt. took medications and ate all meals in community room. Pt. seen pacing in hallway. Pt. is irritable, seeking food. Pt. does not go to groups. 1:1 done at bedside. Pt. denies SI/HI, A/V H. S/I, H/I: None reported or observed. A/VH: None reported or observed. Sleep: Pt. napped x2 ADL's: Independent Group attendance: shift leader, no groups. Were meds taken: Medication compliant. Any med S/E: None reported or observed. Mental Status Exam Appearance: disheveled. Eye contact: Fair Behavior: isolative, pacing hallway, listening to headphones. Speech: Clear, minimal Mood: anxious, irritable. Affect: Constricted Thought process: Paranoid, delusional Thought Content: Pt wanted to go back to bed. Cognition: A/O X 3 Insight: Poor Judgment: Poor Interventions: PRN's used: None Therapeutic interventions: 1:1 assessment, active listening, reality orientation, limit setting, redirection, distraction, verbal de-escalation, show of support, monitoring and intervention of unsafe behaviors, encouragement to take medications, positive reinforcement, mental health hold education, Q15 safety checks. Justification of Continued Inpatient Treatment: Patient needs further medication adjustment to reach therapeutic levels and stabilize current crisis. Pt is a high risk for readmission if d/c at this time. Pt continues to be paranoid and delusional.
[2019-06-29 19:41] VITALS: BP 123/74
--- NOTE | 2019-06-30 00:21 | NUR ---
Nursing Progress Note: Legal hold: 5250 Exp 07/11 @ 1640 Client on involuntary status for GD/DTS. Report received from PRERNA Moffett with use of SBAR. Why are they here: 49-year-old male with a history of depression since with suicidal ideation 3 days. Patient states he does not take any medicines for depression for the last 2 years. He states he was going to overdose or jump in front of car in order to end his life. Last used meth one week ago. Also occasionally uses marijuana. Denies any alcohol use. He does smoke cigarettes as well. Assessment What has happened this shift: Pt observed pacing halls at shift change. Pt requested a Tylenol for a headache 04/03. Pt denies SI, A/VH. Pt medication compliant. Observed pts tongue during med administration- pts tongue is fissured. No c/o pain or discoloration. Pt states my tongue has always been like that. Pt is concerned about his upcoming discharge nobody wants me. Explained that SS was going to get him set up with resources. Pts Nicotine patch was removed and discarded in proper receptacle. S/I, H/I: None reported or observed. A/VH: None reported or observed. Sleep: Refer to Sleep Assessment. ADL's: Independent Group attendance: insole cementer, no groups. Were meds taken: Medication compliant. Any med S/E: None reported or observed. Mental Status Exam Appearance: Disheveled Eye contact: Fair Behavior: Cooperative, pacing halls, distracted with discharge Speech: Clear, normal rate and rhythm Mood: Better Affect: Constricted Thought process: Linear Thought Content: Discharge Cognition: A/O X 3 Insight: Poor Judgment: Poor Interventions: PRN's used: None Therapeutic interventions: 1:1 assessment, active listening, reality orientation, limit setting, redirection, distraction, verbal de-escalation, show of support, monitoring and intervention of unsafe behaviors, encouragement to take medications, positive reinforcement, mental health hold education, Q15 safety checks. Justification of Continued Inpatient Treatment: Patient needs further medication adjustment to reach therapeutic levels and stabilize current crisis. Pt is a high risk for readmission if d/c at this time. Pt continues to be paranoid and delusional. Addendum: 06/30/19 at 0452 by Rosemarie Mclean RN Pt woke up with a headache 04/03. Tylenol administered.
[2019-06-30] MEDS: acetaminophen 325mg tablet PO PRN (04:32)
[2019-06-30 07:46] VITALS: BP 113/71
[2019-06-30] MEDS: ARIPIPRAZOLE 10 MG TABLET PO SCH ×2 (07:47→20:44)
[2019-06-30] MEDS: nicotine 21mg patch - 24 hr TD SCH (07:48)
[2019-06-30] MEDS: divalproex sod 250mg ER (24-hour) tablet PO SCH ×2 (08:16→20:44)
[2019-06-30] MEDS: LORazepam 1 MG tablet PO PRN ×2 (11:20→20:44)
--- NOTE | 2019-06-30 16:09 | NUR ---
Nursing Progress Note: [facility] Legal hold: 5250 Exp 07/11 @ 1640 Client on involuntary status for GD/DTS. Report received from PRERNA Ba with use of SBAR. Why are they here: 49-year-old male with a history of depression since with suicidal ideation 3 days. Patient states he does not take any medicines for depression for the last 2 years. He states he was going to overdose or jump in front of car in order to end his life. Last used meth one week ago. Also occasionally uses marijuana. Denies any alcohol use. He does smoke cigarettes as well. Assessment What has happened this shift: Pt in bed to begin shift today. He was compliant with am care and assessment. Took all medication but refused Nicotine patch this morning. At times, he appears internally preoccupied but will not admit to hearing voices. He currently endorses safe unit behaviors and verbally contracts for such. Ativan given PRN per orders at 1120 hours today with good effect. Client ate lunch and asked for snack before returning to his room to rest. Client visible on the unit this afternoon. Behavior is appropriate. Resting in his room as of this writing (1610 hours). S/I, H/I: None reported or observed. A/VH: None reported or observed. Sleep: 7.25 hours last shift ADL's: Independent Group attendance: Were meds taken: Medication compliant. Any med S/E: None reported or observed. Mental Status Exam Appearance: Disheveled Eye contact: Fair Behavior: Cooperative, pacing halls, distracted with discharge Speech: Clear, normal rate and rhythm Mood: Better Affect: Constricted Thought process: Linear Thought Content: Discharge Cognition: A/O X 3 Insight: Poor Judgment: Poor Interventions: PRN's used: None Therapeutic interventions: 1:1 assessment, active listening, reality orientation, limit setting, redirection, distraction, verbal de-escalation, show of support, monitoring and intervention of unsafe behaviors, encouragement to take medications, positive reinforcement, mental health hold education, Q15 safety checks. Justification of Continued Inpatient Treatment: Patient needs further medication adjustment to reach therapeutic levels and stabilize current crisis. Pt is a high risk for readmission if d/c at this time. Pt continues to be paranoid and delusional.
[2019-06-30 20:00] VITALS: BP 118/78
--- NOTE | 2019-07-01 03:59 | NUR ---
Nursing Progress Note: Legal hold: 5250 Exp 07/11 @ 1640 Client on involuntary status for GD/DTS. Report received from PRERNA Moffett with use of SBAR. Why are they here: 49-year-old male with a history of depression since with suicidal ideation 3 days. Patient states he does not take any medicines for depression for the last 2 years. He states he was going to overdose or jump in front of car in order to end his life. Last used meth one week ago. Also occasionally uses marijuana. Denies any alcohol use. He does smoke cigarettes as well. Assessment What has happened this shift: The patient was found sleeping at shift change. He turned over and looked at me, "I really don't feel like talking right now." Patient denies SI or AV/H, but can be heard responding. he denied having needs, turned over and went back to sleep. S/I, H/I: Denies. A/VH: Denies, but heard responding. Sleep: See sleep assessment. ADL's: Independent Group attendance: car wash attendant automatic, no groups. Were meds taken: Medication compliant. Any med S/E: None reported or observed. Mental Status Exam Appearance: Disheveled, unclean, malodorous, wearing green scrubs. Eye contact: Fair Behavior: Cooperative, pacing halls, distracted with discharge Speech: Clear, normal rate and rhythm Mood: "OK" Affect: Constricted Thought process: Linear Thought Content: Discharge Cognition: A/O X 3 Insight: Poor Judgment: Poor Interventions: PRN's used: None Therapeutic interventions: 1:1 assessment, active listening, reality orientation, limit setting, redirection, distraction, verbal de-escalation, show of support, monitoring and intervention of unsafe behaviors, encouragement to take medications, positive reinforcement, mental health hold education, Q15 safety checks. Justification of Continued Inpatient Treatment: Patient needs further medication adjustment to reach therapeutic levels and stabilize current crisis. Pt is a high risk for readmission if d/c at this time. Pt continues to be paranoid and delusional.
[2019-07-01] MEDS: nicotine 21mg patch - 24 hr TD SCH (07:28)
[2019-07-01 07:59] VITALS: BP 112/73
[2019-07-01] MEDS: ARIPIPRAZOLE 10 MG TABLET PO SCH ×2 (08:43→20:35)
[2019-07-01] MEDS: divalproex sod 250mg ER (24-hour) tablet PO SCH ×2 (08:44→20:35)
--- NOTE | 2019-07-01 15:24 | NUR ---
Nursing Progress Note: [facility] Legal hold: 5250 Exp 07/11 @ 1640 Client on involuntary status for GD/DTS. Report received from PRERNA Florian with use of SBAR. Why are they here: 49-year-old male with a history of depression since with suicidal ideation 3 days. Patient states he does not take any medicines for depression for the last 2 years. He states he was going to overdose or jump in front of car in order to end his life. Last used meth one week ago. Also occasionally uses marijuana. Denies any alcohol use. He does smoke cigarettes as well. Assessment What has happened this shift: Client was in bed resting at change of shift. Client amicable to assessment and medications. No somatic complaints at time of assessment. Client has been ambulating on unit and his behaviors are appropriate. At times. client appears internally preoccupied but will deny hearing voices if questioned. Client has spent the majority of the shift in his room. Client will ambulate in halls at times but is more isolative today. He has had no behavioral issues this shift. No somatic complaints on this shift. Client is selectively social with peers and staff alike. S/I, H/I: Denies. A/VH: Denies, but heard responding. Sleep: ADL's: Independent needs prompting Group attendance: Were meds taken: Medication compliant. Any med S/E: None reported or observed. Mental Status Exam Appearance: Disheveled, unclean, malodorous, wearing green scrubs. Eye contact: Fair Behavior: Cooperative, pacing halls, frequent periods of rest this shift. Speech: Clear, normal rate and rhythm Mood: " I do not trust anyone" Affect: Constricted Thought process: Linear Thought Content: Discharge Cognition: A/O X 3 Insight: Poor Judgment: Poor Interventions: PRN's used: None Therapeutic interventions: 1:1 assessment, active listening, reality orientation, limit setting, redirection, distraction, verbal de-escalation, show of support, monitoring and intervention of unsafe behaviors, encouragement to take medications, positive reinforcement, mental health hold education, Q15 safety checks. Justification of Continued Inpatient Treatment: Patient needs further medication adjustment to reach therapeutic levels and stabilize current crisis. Pt is a high risk for readmission if d/c at this time. Pt continues to be paranoid and delusional.
[2019-07-01] MEDS: LORazepam 1 MG tablet PO PRN (15:58)
[2019-07-01 19:57] VITALS: BP 127/72
--- NOTE | 2019-07-02 03:51 | NUR ---
Nursing Progress Note: Legal hold: 5250 Exp 07/11 @ 1640 Client on involuntary status for GD/DTS. Report received from PRERNA Moffett with use of SBAR. Why are they here: 49-year-old male with a history of depression since with suicidal ideation 3 days. Patient states he does not take any medicines for depression for the last 2 years. He states he was going to overdose or jump in front of car in order to end his life. Last used meth one week ago. Also occasionally uses marijuana. Denies any alcohol use. He does smoke cigarettes as well. Assessment What has happened this shift: The patient was found sleeping at shift change. He continues to be paranoid, guarded and isolative. He reports that he's leaving tomorrow. The patient states that he will go to the mission, but won't talk about what happens after the mission. he spends most of the time in his room, but comes out to see the time or ask for water or food. The patient took his HS meds then went back to sleep. S/I, H/I: Denies. A/VH: Denies, but heard responding. Sleep: See sleep assessment. ADL's: Independent, needs prompting Group attendance: frozen pie maker, no groups. Were meds taken: Medication compliant. Any med S/E: None reported or observed. Mental Status Exam Appearance: Disheveled, unclean, malodorous, wearing filthy green scrubs. Eye contact: Fair Behavior: Cooperative, pacing halls, distracted with discharge Speech: Clear, normal rate and rhythm Mood: "OK" Affect: Constricted Thought process: Linear Thought Content: Discharge Cognition: A/O X 3 Insight: Poor Judgment: Poor Interventions: PRN's used: None Therapeutic interventions: 1:1 assessment, active listening, reality orientation, limit setting, redirection, distraction, verbal de-escalation, show of support, monitoring and intervention of unsafe behaviors, encouragement to take medications, positive reinforcement, mental health hold education, Q15 safety checks. Justification of Continued Inpatient Treatment: Patient needs further medication adjustment to reach therapeutic levels and stabilize current crisis. Pt is a high risk for readmission if d/c at this time. Pt continues to be paranoid and delusional.
[2019-07-02 08:00] VITALS: BP 123/68
[2019-07-02] MEDS: nicotine 21mg patch - 24 hr TD SCH (08:00)
[2019-07-02] MEDS: ARIPIPRAZOLE 10 MG TABLET PO SCH (08:02)
[2019-07-02] MEDS: divalproex sod 250mg ER (24-hour) tablet PO SCH (08:03)
[2019-07-02] MEDS ORDERED: ARIP10TA15 PO (12:56)
[2019-07-02] MEDS ORDERED: NICO-687 TD (12:56)
[2019-07-02] MEDS ORDERED: DIVA250T8 PO ×2 (12:56)
--- NOTE | 2019-07-02 13:38 | NUR ---
Pt refused to have pictures taken of his feet at discharge. Addendum: 07/02/19 at 1338 by Adryan Sun RN Amended: Links added.
--- NOTE | 2019-07-02 13:39 | NUR ---
Nursing Discharge Note. Pt discharged from [facility] at 1335 and refused a cab ride. He stated he wanted to walk to the mission. Pt was calm and cooperative and understood his discharge instructions and chose to take his prescriptions to a pharmacy of his chosing. Pt was not in any acute emotional or physical distress and has been improving since admission.Pt understands his DC instructions and was provided nicotine replacement. Pt's valuables were inventoried by Gallo Exara, and returned to him.
== END 2019-07-02 13:50 | disposition short-term general hospital (02) | DRG 885 ==
LOC: ADULT MH 16:53
PROVIDERS: ADMIT Psychiatry & Neurology Psychiatry; ATTEND Psychiatry & Neurology Psychiatry
DX: F25.0 Schizoaffective disorder, bipolar type (principal); R45.851 Suicidal ideations; F32.9 Major depressive disorder, single episode, unspecified; F41.0 Panic disorder [episodic paroxysmal anxiety]; E11.9 Type 2 diabetes mellitus without complications; E78.00 Pure hypercholesterolemia, unspecified; F12.90 Cannabis use, unspecified, uncomplicated; F17.210 Nicotine dependence, cigarettes, uncomplicated; E66.9 Obesity, unspecified; G43.909 Migraine, unspecified, not intractable, without status migrainosus; G89.29 Other chronic pain; K21.9 Gastro-esophageal reflux disease without esophagitis; M54.9 Dorsalgia, unspecified; G40.909 Epilepsy, unspecified, not intractable, without status epilepticus; I10 Essential (primary) hypertension; Z82.0 Family history of epilepsy and other diseases of the nervous system; Z83.3 Family history of diabetes mellitus; Z91.19 Patient's noncompliance with other medical treatment and regimen; Z68.23 Body mass index [BMI] 23.0-23.9, adult; Z88.8 Allergy status to other drugs, medicaments and biological substances
CPT/HCPCS: 36415; 80053; 80061; 80305; 80320; 81003; 83036; 84443; 85025; 87081; J1200; J1630; J2060; Z7610

== ENCOUNTER 2019-07-04 09:20 | Emergency (ER) | payer MEDICARE, MEDICAID ==
[~2019-07-04] VITALS: Ht 180.3 cm; Wt 76.0 kg
[~2019-07-04 09:20] MED LIST changes: +ARIP10TA15 PO; -ATI1T PO; -BUSP5TAB26 PO; -DIPH-423 PO; +DIVA250T8 PO; -DIVA500T2 PO; -GUAI120015 PO; -LORA10TA65 PO; -NAPR-1144 PO; -NEOM14.216 TP; +NO HOME MEDS; -TRAZ150T78 PO; -VENL-190 PO
--- NOTE | 2019-07-04 09:40 | NUR ---
ACCUCHECK BG 77, GAVE PT JUICE
--- NOTE | 2019-07-04 10:21 | NUR ---
LOOKED FOR APPROPRIATE SHOES IN HOMELESS CLOSET AND NONE AVAILABLE, PAGED COLLABORATIVE TEACHER TO SEE IF THEY CAN ASSIST WTIH GETTING PT APPROPRIATE SHOES.
--- NOTE | 2019-07-04 10:24 | NUR ---
RHINA WITH HAND CLOTH FOLDER CALLED BACK STATES SHE WILL WORK ON GETTING SHOES FOR PT.
[2019-07-04] MEDS ORDERED: clindamycin 150mg capsule PO ONE (10:35)
[2019-07-04] MEDS ORDERED: CLIN300C53 PO (10:41)
[2019-07-04 10:46] VITALS: BP 130/90
--- NOTE | 2019-07-04 10:55 | NUR ---
patient given homelss meal, awaiting Nursing Home Administrator for shoes
--- NOTE | 2019-07-04 11:10 | NUR ---
PT EATING HOMELESS SACK LUNCH AND IS AGREEABLE TO WAIT FOR WEATHER APPROPRIATE SHOES BEING OBTAINED BY [facility]
--- NOTE | 2019-07-04 11:16 | NUR ---
GAVE PT ANOTHER JUICE AND CRACKERS, RHINA TO BEDSIDE AND PROVIDE PT WITH BLACK BOOTS, PT PUTTING SHOES ON AND WILL REVIEW DISCHARGE INSTRUCTIONS AND PRESCRIPTION WITH PT FINISHED.
== END 2019-07-04 11:26 | disposition home or self-care (01) ==
LOC: ER 09:21
DX: L03.115 Cellulitis of right lower limb (principal); F20.9 Schizophrenia, unspecified; G43.909 Migraine, unspecified, not intractable, without status migrainosus; E78.00 Pure hypercholesterolemia, unspecified; I10 Essential (primary) hypertension; K21.9 Gastro-esophageal reflux disease without esophagitis; E11.9 Type 2 diabetes mellitus without complications; G89.29 Other chronic pain; F31.9 Bipolar disorder, unspecified; F12.90 Cannabis use, unspecified, uncomplicated; F10.99 Alcohol use, unspecified with unspecified alcohol-induced disorder; Z98.890 Other specified postprocedural states; Z88.8 Allergy status to other drugs, medicaments and biological substances; Z79.899 Other long term (current) drug therapy; Y90.9 Presence of alcohol in blood, level not specified
CPT/HCPCS: 73610; 82948; 99284

== ENCOUNTER 2019-07-04 23:42 | Emergency (ER) | payer MEDICARE, MEDICAID ==
[~2019-07-04] VITALS: Ht 180.3 cm; Wt 68.1 kg
[~2019-07-04 23:42] MED LIST changes: +CLIN300C53 PO
[2019-07-05 00:25] LABS: BASOPHILS # (AUTO) 0.1 X10'3 (0-0.2); BASOPHILS % (AUTO) 0.5 % (0-1); EOSINOPHILS # (AUTO) 0.1 X10'3 (0-0.9); EOSINOPHILS % (AUTO) 0.9 % (0-6); HEMATOCRIT 38.7 % (42.0-52.0); HEMOGLOBIN 13.4 g/dl (14.0-17.9); LYMPHOCYTES % (AUTO) 8.8 % (21-51); MEAN CORPUSCULAR HEMOGLOBIN 31.9 PG (27.0-31.0); MEAN CORPUSCULAR HGB CONC 34.6 g/dL (33.0-36.5); MEAN PLATELET VOLUME 6.2 FL (7.4-10.4); MONOCYTES # (AUTO) 0.8 X10'3 (0-0.9); MONOCYTES % (AUTO) 6.9 % (2-12); NEUTROPHILS # (AUTO) 9.3 X10'3 (1.8-7.7); NEUTROPHILS % (AUTO) 82.9 % (42-75); PLATELET COUNT 296 X10'3 (140-440); RED CELL DISTRIBUTION WIDTH 13.3 % (11.5-14.5); WHITE BLOOD COUNT 11.2 X10'3 (4.5-11.0)
[2019-07-05 00:40] LABS: ALANINE AMINOTRANSFERASE 30 U/L (12-78); ALBUMIN 3.4 G/DL (3.4-5.0); ALKALINE PHOSPHATASE 73 IU/L (46-116); ANION GAP 10 (8-16); ASPARTATE AMINO TRANSFERASE 31 U/L (10-37); BILIRUBIN,TOTAL 0.6 MG/DL (0.1-1.0); BLOOD UREA NITROGEN 21 MG/DL (7-18); BUN/CREATININE RATIO 36.2 (5.4-32.0); CALCIUM 8.7 MG/DL (8.5-10.1); CHLORIDE 105 MMOL/L (99-107); CREATININE 0.58 MG/DL (0.60-1.10); GLUCOSE 124 MG/DL (70-104); POTASSIUM 3.7 MMOL/L (3.5-5.1); SODIUM 141 MMOL/L (135-145); TOTAL CARBON DIOXIDE 26.3 MMOL/L (24-32); TOTAL PROTEIN 6.8 G/DL (6.4-8.2); VALPROATE 7 UG/ML (50-100); eGFR > 90 ML/MIN
[2019-07-05 00:42] LABS: ETHANOL < 0.010 GM/DL (0.0-0.010)
[2019-07-05 00:46] VITALS: BP 106/77
[2019-07-05 01:01] LABS: CLARITY,URINE CLEAR (Clear); COLOR,URINE YELLOW (Yellow); GLUCOSE, URINE NEGATIVE (Neg); KETONES,URINE TRACE mg/dl (Neg); LEUKOCYTE ESTERASE ,URINE NEGATIVE (Neg); NITRITES, URINE NEGATIVE (Neg); OCCULT BLOOD,URINE NEGATIVE (Neg); PROTEIN,URINE NEGATIVE (Neg)
[2019-07-05 01:04] LABS: UA COLLECTION TYPE CLN CATCH MIDSTREAM
--- NOTE | 2019-07-05 01:06 | NUR ---
PT ENOCH ALDRIDGE NOTIFIED
[2019-07-05 01:14] LABS: URINE AMPHETAMINE SCREEN POSITIVE (Neg); URINE BARBITUATE SCREEN NEGATIVE (Neg); URINE BENZODIAZEPINES SCREEN NEGATIVE (Neg); URINE CANNABINOID SCREEN POSITIVE (Neg); URINE COCAINE SCREEN NEGATIVE (Neg); URINE METHADONE SCREEN NEGATIVE (Neg); URINE OPIATE SCREEN NEGATIVE (Neg); URINE PHENCYCLIDINE SCREEN NEGATIVE (Neg)
== END 2019-07-05 01:10 | disposition left against medical advice (07) ==
LOC: ER 23:43
DX: R45.851 Suicidal ideations (principal); F20.9 Schizophrenia, unspecified; G43.909 Migraine, unspecified, not intractable, without status migrainosus; E78.00 Pure hypercholesterolemia, unspecified; K21.9 Gastro-esophageal reflux disease without esophagitis; E11.9 Type 2 diabetes mellitus without complications; G89.29 Other chronic pain; F31.9 Bipolar disorder, unspecified; F12.90 Cannabis use, unspecified, uncomplicated; F10.99 Alcohol use, unspecified with unspecified alcohol-induced disorder; Z86.69 Personal history of other diseases of the nervous system and sense organs; Z98.890 Other specified postprocedural states; Z88.8 Allergy status to other drugs, medicaments and biological substances; Z79.899 Other long term (current) drug therapy; Y90.9 Presence of alcohol in blood, level not specified
CPT/HCPCS: 36415; 80053; 80164; 80305; 80320; 81003; 85025; 99284

== ENCOUNTER 2019-07-08 00:41 | Emergency (ER) | payer MEDICARE, MEDICAID ==
[~2019-07-08] VITALS: Ht 182.9 cm; Wt 75.0 kg
[2019-07-08 01:12] VITALS: BP 103/61
[2019-07-08] MEDS ORDERED: sulfamethoxazole/trimethoprim DS (800/160mg) tablet PO ONE (03:25)
[2019-07-08] MEDS ORDERED: SULF1TAB49 PO (03:30)
== END 2019-07-08 04:18 | disposition home or self-care (01) ==
LOC: ER 00:41
DX: L03.115 Cellulitis of right lower limb (principal); M25.531 Pain in right wrist; M25.532 Pain in left wrist; E78.00 Pure hypercholesterolemia, unspecified; I10 Essential (primary) hypertension; K21.9 Gastro-esophageal reflux disease without esophagitis; E11.9 Type 2 diabetes mellitus without complications; G89.29 Other chronic pain; F31.9 Bipolar disorder, unspecified; F41.0 Panic disorder [episodic paroxysmal anxiety]; F20.9 Schizophrenia, unspecified; F12.90 Cannabis use, unspecified, uncomplicated; Z86.69 Personal history of other diseases of the nervous system and sense organs; Z98.890 Other specified postprocedural states; Z59.0 Homelessness; Z88.8 Allergy status to other drugs, medicaments and biological substances; Z79.2 Long term (current) use of antibiotics; Z79.899 Other long term (current) drug therapy
CPT/HCPCS: 73600; 99283

== ENCOUNTER 2019-07-09 00:17 | Emergency (ER) | payer MEDICARE, MEDICAID ==
[~2019-07-09] VITALS: Ht 182.9 cm; Wt 75.0 kg
[~2019-07-09 00:17] MED LIST changes: +SULF1TAB49 PO
[2019-07-09] MEDS ORDERED: ketorolac trometh inj. 60 MG/2 ML VIAL IM ONE (01:10)
[2019-07-09] MEDS ORDERED: cyclobenzaprine 10mg tablet PO ONE (01:10)
[2019-07-09 01:39] VITALS: BP 115/56
== END 2019-07-09 01:42 | disposition home or self-care (01) ==
LOC: ER 00:17
DX: G89.29 Other chronic pain (principal); E78.00 Pure hypercholesterolemia, unspecified; I10 Essential (primary) hypertension; K21.9 Gastro-esophageal reflux disease without esophagitis; F31.9 Bipolar disorder, unspecified; E11.9 Type 2 diabetes mellitus without complications; G43.909 Migraine, unspecified, not intractable, without status migrainosus; F12.10 Cannabis abuse, uncomplicated; F17.210 Nicotine dependence, cigarettes, uncomplicated; Z59.0 Homelessness; Z88.8 Allergy status to other drugs, medicaments and biological substances; Z79.899 Other long term (current) drug therapy
CPT/HCPCS: 96372; 99283; J1885